=== PATIENT | female | born 1945 | race Caucasian/White ===

== ENCOUNTER 2018-04-08 10:43 | Emergency (ER) | payer OTHER ==
[2018-04-08 10:50] VITALS: TEMP 98.7; BMI 30.9
[2018-04-08] MEDS ORDERED: BACITRACIN 0.9 GM PACKET ONE (11:16)
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
[2018-04-08 14:04] VITALS: BP 140/82; PULSE 78
== END 2018-04-08 13:55 | disposition home or self-care (01) ==
LOC: JER 10:43
DX: S00.31XA Abrasion of nose, initial encounter (principal); Y04.2XXA Assault by strike against or bumped into by another person, initial encounter; Y93.89 Activity, other specified; Y92.128 Other place in nursing home as the place of occurrence of the external cause; Y99.8 Other external cause status; Y07.9 Unspecified perpetrator of maltreatment and neglect; I10 Essential (primary) hypertension; G20 Parkinson's disease; F02.80 Dementia in other diseases classified elsewhere, unspecified severity, without behavioral disturbance, psychotic disturbance, mood disturbance, and anxiety; F20.0 Paranoid schizophrenia; K21.9 Gastro-esophageal reflux disease without esophagitis
CPT/HCPCS: 99282-25

== ENCOUNTER 2018-07-07 12:15 | Emergency (ER) | payer MEDICARE, OTHER ==
[2018-07-07 12:23] VITALS: PULSE 77; TEMP 98.4; BMI 26.6
--- NOTE | 2018-07-07 13:21 | PDOC ---
History of Present Illness - General Chief Complaint: Pain, Acute Stated Complaint: ABD PAIN Time Seen by Provider: 07/07/18 13:19 History Source: Patient Exam Limitations: Other - History of Present Illness Initial Comments: Pt is a 73 yo F, with PMH of Parkinson's ds, GERD, paranoid schizophrenia, and DM, who is presenting with complaints of epigastric pain since this morning. Pt states the pain started after drinking her morning coffee and eating chocolate. The pain persisted for ~15 minutes, resolved, and then returned about an hour later. She does not have any current complaints at this time. Pt takes ranitidine Qday at [facility], but pt does not know why she takes this medication or what produces her epigastric pain. Pt states this pain comes and goes over the past 2 weeks, but she states she has not been evaluated by a physician for this problem recently. Pt denies any recent fevers/chills, headache, vision changes, syncope, chest pain, palpitations, SOB, nausea/vomiting, urinary symptoms, diarrhea/constipation, or leg swelling. Social: Pt denies any cigarette, alcohol, or drug use. Pt denies any recent travel or sick contacts. Surgical: no relevant history. Family: no relevant history. 07/07/18 14:33 Past History - Travel Traveled outside of the country in the last 30 days: No Close contact w/someone who was outside of country & ill: No - Past Medical History Allergies/Adverse Reactions: Allergies Allergy/AdvReac Type Severity Reaction Status Date / Time No Known Allergies Allergy Verified 07/07/18 12:21 Home Medications: Ambulatory Orders Acetaminophen [Tylenol] 650 mg PO QID 07/07/18 Ca/D3/Mag Ox/Zinc/Certified Lactation Educator/Allan/Bor [Calcium 600+D3 Plus Caplet] 1 each PO BID Carbidopa/Levodopa 25/100 [Sinemet 25/100 -] 1 each PO DAILY 07/07/18 Fenofibrate Nanocrystallized [Triglide] 160 mg PO DAILY 07/07/18 Insulin Lispro [Humalog Vikas Kwikpen] 100 unit SQ BID 07/07/18 Multivitamins [Tab-A-Vit -] 1 tab PO DAILY 07/07/18 Polyvinyl Alcohol [Artificial Tears] 15 ml OP BID 07/07/18 Quetiapine Fumarate [Seroquel -] 400 mg PO BID 07/07/18 Ranitidine HCl [Zantac] 150 mg PO BID 07/07/18 Risperidone 1 mg PO BID 07/07/18 Sennosides/Docusate Sodium [Senna-Docusate Sodium Tablet] 1 each PO BID Valproic Acid 250 mg PO BID 07/07/18 clonazePAM [Klonopin -] 0.5 mg PO DAILY 07/07/18 COPD: No Dementia: Yes GI Disorders: Yes (gerd) HTN: Yes Psychiatric Problems: Yes (paranoid schiophrenia, anxiety) - Suicide/Smoking/Psychosocial Hx Smoking History: Former smoker Have you smoked in the past 12 months: No Information on smoking cessation initiated: No Hx Alcohol Use: No Drug/Substance Use Hx: No Substance Use Type: None Review of Systems - Review of Systems Able to Perform ROS?: Yes Is the patient limited Lithuanian proficient: No Constitutional: Yes: Weight Stable. No: Chills, Diaphoresis, Fever, Loss of Appetite, Weakness HEENTM: No: Recent change in vision, Nose Congestion, Throat Pain Respiratory: No: Cough, Shortness of Breath Cardiac (ROS): No: Chest Pain, Edema, Irregular Heart Rate, Lightheadedness, Palpitations, Syncope, Chest Tightness ABD/GI: Yes: See HPI, Indigestion, Abdominal cramping. No: Abdominal Distended , Blood Streaked Bowels, Constipated, Diarrhea, Nausea, Poor Appetite, Poor Fluid Intake, Vomiting : No: Burning, Dysuria, Frequency, Pain, Urgency Musculoskeletal: No: Back Pain, Joint Pain Integumentary: No: Rash Neurological: No: Headache, Dizziness Psychiatric: No: Sleep Pattern Change, Change in Appetite Endocrine: No: Increased Urine, Change in Weight Hematologic/Lymphatic: No: Anemia, Blood Clots, Easy Bleeding, Easy Bruising All Other Systems: Reviewed and Negative *Physical Exam - Vital Signs Last Vital Signs Temp Pulse Resp BP Pulse Ox 98.4 F 77 18 136/36 L 97 07/07/18 12:21 07/07/18 12:21 07/07/18 12:21 07/07/18 12:21 07/07/18 12:21 - Physical Exam Comments: Repeat BP at bedside 123/59, pt afebrile. Pt in NAD, normal body habitus. PE showed pt alert and oriented, but very poor insight into why she is present in the ER and is poor historian. podiatric medicine professor generally intact, muscular strength and sensation intact. Eyes PERRLA, EOMI. Oropharynx without erythema or exudates, no LAD b/l. No nasal congestion, hearing intact. Clear heart sounds, S1/S2, no JVD, b/l pedal edema, or heart murmur. Clear lung sounds, no respiratory distress, wheezes, crackles, or accessory muscle use. No abdominal or CVA tenderness to palpation, no rebound, no guarding, no hernias or pulsatile masses. Abdomen soft, non-distended, and with normoactive bowel sounds. Skin without jaundice or rash. PE benign. 07/07/18 14:37 Moderate Sedation - Procedure Monitoring Vital Signs: Procedure Monitoring Vital Signs Temperature 98.4 F 07/07/18 12:21 Pulse Rate 77 07/07/18 12:21 Respiratory Rate 18 07/07/18 12:21 Blood Pressure 136/36 L 07/07/18 12:21 O2 Sat by Pulse Oximetry (%) 97 07/07/18 12:21 Heart Score/ECG Review - History History: Slightly suspicious - Electrocardiogram EKG: Non specific repolarization disturbance - Age Age: >/= 65 - Risk Factors Risk Factors Heart Score: Yes Hx Diabetes Based on the list above the patient has:: 1-2 risk factors ED Treatment Course - LABORATORY CBC & Chemistry Diagram: 07/07/18 13:48 07/07/18 13:48 Medical Decision Making - Medical Decision Making Pt was seen at bedside, also will be seen by attending Dr. Garber. Pt presenting with complaints of epigastric pain since this morning. Pt states the pain started after drinking her morning coffee and eating chocolate. The pain persisted for ~15 minutes, resolved, and then returned about an hour later. She does not have any current complaints at this time. Pt takes ranitidine Qday at [facility], but pt does not know why she takes this medication or what produces her epigastric pain. Pt states this pain comes and goes over the past 2 weeks, but she states she has not been evaluated by a physician for this problem recently. Pt denies any recent fevers/chills, headache, vision changes, syncope , chest pain, palpitations, SOB, nausea/vomiting, urinary symptoms, diarrhea/ constipation, or leg swelling. Repeat BP at bedside 123/59, pt afebrile. Pt in NAD, normal body habitus. PE showed pt alert and oriented, but very poor insight into why she is present in the ER and is poor historian. podiatric medicine professor generally intact, muscular strength and sensation intact. Eyes PERRLA, EOMI. Oropharynx without erythema or exudates, no LAD b/l. No nasal congestion, hearing intact. Clear heart sounds, S1/S2, no JVD, b/l pedal edema, or heart murmur. Clear lung sounds, no respiratory distress, wheezes, crackles, or accessory muscle use. No abdominal or CVA tenderness to palpation, no rebound, no guarding, no hernias or pulsatile masses. Abdomen soft, non-distended, and with normoactive bowel sounds. Skin without jaundice or rash. PE benign. Considering GERD exacerbation vs gastric/duodenal ulcer Ordered work-up including CBC, CMP, troponin, ECG, UA, chest x-ray. Providing 20 mg IV pepcid, 30 mg PO maalox, viscous lidocaine for likely reflux. Will continue to reassess pt and monitor for symptomatic improvement. ECG: NSR, intervals WNL. TWI in III, no prior for comparison. No significant ST segment changes. 07/07/18 13:48 Pt attempting to leave against medical advice. Pt is alert and oriented, however has underlying dementia and psych history, and has no insight into her disease process. She does not understand why she is receiving treatment or work- up. Will continue to evaluate pt, and she is willing to take medication. 07/07/18 14:09 07/07/18 14:35 CBC, CMP, UA negative. AST mildly elevated 107, ALT WNL (no prior for comparison -- can follow outpatient) First troponin <.02. Second troponin to be drawn at 16:45. Nursing staff aware. 07/07/18 14:41 Second troponin pending in lab. [id number] RAD/CHEST PA & LAT Chest: Epigastric pain There are no prior studies for comparison. There is a weak inspiration with prominent mediastinum, slight scoliosis with degenerative changes and some atelectasis and pleural reaction at the left base. Correlation recommended. Pt vitals stable -- no cough, increased WBC/fever -- unlikely pneumonia 07/07/18 17:09 Second troponin negative. Pt can be discharged to home with follow-up. Pt advised to follow-up with PCP in 1-2 days. Strict return precautions provided with pt understanding. 07/07/18 17:56 *DC/Admit/Observation/Transfer Diagnosis at time of Disposition: Epigastric pain - Discharge Dispostion Disposition: [facility] F[facility] Condition at time of disposition: Improved Decision to Admit order: No - Referrals Referrals: Arnulfo Darling MD [Primary Care Provider] - - Patient Instructions Printed Discharge Instructions: DI for Gastroesophageal Reflux Disease (GERD) Additional Instructions: You were seen in the ER today for pain in your upper abdomen. The results of your labs and imaging today were normal and you improved after reflux medication. Please follow-up with your primary care doctor within 1-2 days to discuss your visit and make sure your symptoms have improved. Please return to the ER if you have any worsening pain, development of fevers or chills, loss of consciousness, inability to tolerate food or fluids, or any other concerns. - Post Discharge Activity
[2018-07-07] MEDS ORDERED: MAG HYDROX/AL HYDROX/SIMETH 30 ML UNIT-DOSE CUP PO ONE (14:00)
[2018-07-07] MEDS ORDERED: FAMOTIDINE 20 MG/50 ML IVPB 20 MG/50 ML MG IVPB ONE ×2 (14:00→14:04)
[2018-07-07] MEDS ORDERED: LIDOCAINE VISCOUS 2% ORAL/TOP 20 ML UNIT-DOSE CUP MM ONE (14:00)
[2018-07-07] MEDS ORDERED: MAG HYDROX/AL HYDROX/SIMETH 30 ML UNIT-DOSE CUP ONE (14:04)
[2018-07-07] MEDS ORDERED: LIDOCAINE VISCOUS 2% ORAL/TOP 20 ML UNIT-DOSE CUP ONE (14:04)
--- NOTE | 2018-07-07 14:08 | PDOC ---
Attending Attestation - Resident Resident Name: Sheryl Noble - ED Attending Attestation I have performed the following: I have examined & evaluated the patient, The case was reviewed & discussed with the resident, I agree w/resident's findings & plan - HPI HPI: 07/07/18 14:38 The patient is a 73 year old female, with a significant past medical history of Parkinson's, GERD, paranoid schizophrenia, and diabetes, poor historian, who presents to the emergency department with epigastric pain since drinking coffee this morning. She states the pain lasts for about 15 minutes and comes and goes. The patient denies chest pain, shortness of breath, headache and dizziness. The patient denies fever, chills, nausea, vomit, diarrhea and constipation. The patient denies dysuria, frequency, urgency and hematuria. Allergies: NKA Social hx: Pt is a resident at [facility] PCP: Dr. Howard - Physicial Exam PE: 07/07/18 14:38 NAD, well appearing, nl conjunctiva, anicteric; neck supple. lungs clear, RRR, abdomen soft nontender. HARRIS x4, no focal neuro deficits. No peripheral edema. normal color for ethnicity, WWP. - Medical Decision Making 07/07/18 14:38 See HPI for details Vital signs reviewed, wnl. Prior notes reviewed, including admissions, discharges and consultations. laboratory results and imaging reviewed, basic labs and lytes wnl, UA neg for infection/blood. Cardiac panel_negative x2 EKG normal sinus rhythm, no interval abnormalities, narrow QRS, ST and T wave segments and morphology normal. Nonspecific T wave abnormalities III only, no contiguous lead changes. ED course: comfortable, given GI cocktail 2nd trop neg, DC home, doubt ACS, more GERd/reflux sx and pt has remained comfortable, abdomen nontender, no cp or sob Dispo: Pt informed of my clinical impression, treatment recommendations and disposition plan. All questions answered to patient's satisfaction and expressed understanding and comfort with this. Reasons for returning to the ED sooner discussed with the patient otherwise, follow up with primary care physician. At the time of discharge, the patient is alert, clinically improved, tolerating po and verbalizes understanding of instructions. Patient does not suffer from an acute life-threatening medical condition at this time she is safe for outpatient follow-up. 07/07/18 14:39 07/07/18 14:40 07/08/18 07:46 07/08/18 07:48 Heart Score/ECG Review - ECG Impressions Normal ECG: No Comment:: 07/07/18 14:39 EKG normal sinus rhythm, no interval abnormalities, narrow QRS, ST and T wave segments and morphology normal. Nonspecific T wave abnormalities III only, no contiguous lead changes.
[2018-07-07 14:19] LABS: BASO % 0.5 % (0-2.0); EOS % 2.1 % (0-4.5); HEMATOCRIT 32.4 % (32.4-45.2); LYMPH % 25.9 % (8-40); MCH 30.6 pg (25.7-33.7); MEAN CELL VOLUME 90.1 fl (80-96); MEAN PLT VOLUME 7.7 fl (7.5-11.1); MONO % 10.7 % (3.8-10.2); NEUT % 60.8 % (42.8-82.8); PLATELET COUNT 312 K/MM3 (134-434); RBC 3.59 M/mm3 (3.60-5.2); WHITE BLOOD COUNT 6.1 K/mm3 (4.0-10.0)
[2018-07-07 14:20] LABS: URINE APPEARANCE CLEAR; URINE BILIRUBIN NEGATIVE (<2.0 mg/dL); URINE COLOR STRAW; URINE GLUCOSE (UA) NEGATIVE (NEGATIVE); URINE KETONE NEGATIVE (NEGATIVE); URINE LEUK ESTERASE NEGATIVE (NEGATIVE); URINE NITRITE NEGATIVE (NEGATIVE); URINE PROTEIN NEGATIVE (NEGATIVE); URINE UROBILINOGEN NEGATIVE mg/dL (0.2-1.0)
[2018-07-07 14:34] LABS: ALBUMIN 3.7 g/dl (3.4-5.0); ALK PHOS 96 U/L (45-117); ANION GAP 5 MMOL/L (8-16); BILIRUBIN,TOTAL 0.1 mg/dL (0.2-1); BLOOD UREA NITROGEN 22 mg/dL (7-18); CALCIUM 8.7 mg/dL (8.5-10.1); CHLORIDE 103 mmol/L (98-107); CO2 30 mmol/L (21-32); CREATININE 0.7 mg/dL (0.55-1.3); GLUCOSE,RANDOM 91 mg/dL (74-106); POTASSIUM 3.8 mmol/L (3.5-5.1); SGOT/AST 107 U/L (15-37); SGPT/ALT 49 U/L (13-61); SODIUM 138 mmol/L (136-145)
[2018-07-07 14:36] VITALS: BP 123/59
--- NOTE | 2018-07-08 02:33 | EKG ---
Test Reason : Blood Pressure : / mmHG Vent. Rate : 076 BPM Atrial Rate : 076 BPM P-R Int : 154 ms QRS Dur : 096 ms QT Int : 402 ms P-R-T Axes : 051 025 030 degrees QTc Int : 452 ms NORMAL SINUS RHYTHM NORMAL ECG NO PREVIOUS ECGS AVAILABLE Confirmed by JOHN GONZALEZ MD ([id number]) on 07/08/2018 2:32:38 AM Referred By: Confirmed By:JOHN GONZAELZ MD
== END 2018-07-07 22:48 ==
LOC: JER 12:15
PROC: 3E033GC Introduction of Other Therapeutic Substance into Peripheral Vein, Percutaneous Approach (ICD-10-PCS; principal; 2018-07-07)
DX: R10.13 Epigastric pain (principal); E11.9 Type 2 diabetes mellitus without complications; K21.9 Gastro-esophageal reflux disease without esophagitis; G20 Parkinson's disease; F20.0 Paranoid schizophrenia
CPT/HCPCS: 36415; 71046-TC-FY; 80053; 81003; 84484; 85025; 87086; 93005; 93010; 96365; 99283-25

== ENCOUNTER 2024-03-21 16:37 | Emergency (ER) | payer OTHER ==
[2024-03-21 17:47] VITALS: BP 131/82; PULSE 97; RESP 18; TEMP 98.8; BMI 25.8
[2024-03-21 18:20] LABS: BASO % 0.8 % (0-2.0); EOS % 2.8 % (0-4.5); HEMATOCRIT 34.1 % (32.4-45.2); HEMOGLOBIN 11.2 GM/dL (10.7-15.3); MCHC 32.8 g/dl (32.0-36.0); MEAN CELL VOLUME 88.4 fl (80-96); MEAN PLT VOLUME 7.4 fl (7.5-11.1); NEUT % 68.4 % (42.8-82.8); PLATELET COUNT 443 10^3/uL (134-434); RBC 3.86 M/mm3 (3.60-5.2); RDW 15.5 % (11.6-15.6); WHITE BLOOD COUNT 5.8 K/mm3 (4.0-10.0)
[2024-03-21 18:50] LABS: POTASSIUM 3.5 mmol/L (3.5-5.1)
[2024-03-21 18:52] LABS: CALCIUM 9.5 mg/dL (8.5-10.1)
[2024-03-21 18:53] LABS: ALBUMIN 3.4 g/dl (3.4-5.0); BLOOD UREA NITROGEN 11.8 mg/dL (7-18)
[2024-03-21 18:56] LABS: CREATININE 0.7 mg/dL (0.55-1.3)
[2024-03-21 18:57] LABS: BILIRUBIN,TOTAL 0.3 mg/dL (0.2-1); TOT PROT 7.1 g/dl (6.4-8.2)
[2024-03-21] MEDS ORDERED: clonazePAM 0.5 MG TABLET ONE (20:17)
[2024-03-21] MEDS: clonazePAM 0.5 MG TABLET PO ONE (20:39)
[2024-03-22 01:26] LABS: URINE APPEARANCE CLEAR; URINE BILIRUBIN NEGATIVE (NEGATIVE); URINE COLOR YELLOW; URINE GLUCOSE (UA) NEGATIVE (NEGATIVE); URINE KETONE TRACE (NEGATIVE); URINE LEUK ESTERASE NEGATIVE (NEGATIVE); URINE NITRITE NEGATIVE (NEGATIVE); URINE PROTEIN TRACE (NEGATIVE)
[2024-03-22] MEDS: SODIUM CHLORIDE 1,000 ML IV STA (02:08)
== END 2024-03-22 03:47 ==
LOC: JER 16:37
PROC: 3E033GC Introduction of Other Therapeutic Substance into Peripheral Vein, Percutaneous Approach (ICD-10-PCS; principal; 2024-03-21)
PROC: 3E0337Z Introduction of Electrolytic and Water Balance Substance into Peripheral Vein, Percutaneous Approach (ICD-10-PCS; 2024-03-21)
DX: R41.82 Altered mental status, unspecified (principal); Z20.822 Contact with and (suspected) exposure to COVID-19
CPT/HCPCS: 0241U-QW; 36415; 70450-TC; 71045-TC-FY; 80053; 81003; 85025; 87086; 93005; 93010; 99285-25

== ENCOUNTER 2024-04-22 19:19 | Inpatient (IN) | payer OTHER ==
[2024-04-22 22:49] LABS: BASO % 0.2 % (0-2.0); HEMATOCRIT 35.3 % (32.4-45.2); LYMPH % 9.2 % (8-40); MCH 28.3 pg (25.7-33.7); MCHC 31.3 g/dl (32.0-36.0); MEAN CELL VOLUME 90.4 fl (80-96); MEAN PLT VOLUME 8.4 fl (7.5-11.1); MONO % 7.9 % (3.8-10.2); NEUT % 82.7 % (42.8-82.8); PLATELET COUNT 408 10^3/uL (134-434); RDW 15.6 % (11.6-15.6); WHITE BLOOD COUNT 10.5 K/mm3 (4.0-10.0)
[2024-04-22 22:51] LABS: VENOUS BASE EXCESS -3.6 mmol/L (-2-2); VENOUS O2 SATURATION 51.6 % (70-80); VENOUS PCO2 43.7 mmHg (38-52); VENOUS PH 7.326 (7.310-7.410)
[2024-04-22 23:02] LABS: INR 1.23 (0.83-1.09); PROTHROMBIN TIME (PATIENT) 14.1 SEC (9.7-13.0)
[2024-04-22 23:05] LABS: ACTIVATED PTT 27.8 SECONDS (25.2-36.5)
[2024-04-22 23:11] LABS: ALBUMIN 3.4 g/dl (3.4-5.0); BLOOD UREA NITROGEN 26.4 mg/dL (7-18); CALCIUM 8.8 mg/dL (8.5-10.1); POTASSIUM 4.1 mmol/L (3.5-5.1)
[2024-04-22 23:27] LABS: BILIRUBIN,TOTAL 0.5 mg/dL (0.2-1); CREATININE 1.3 mg/dL (0.55-1.3); LACTIC ACID 3.6 mmol/L (0.4-2.0); TOT PROT 7.9 g/dl (6.4-8.2)
[2024-04-23] MEDS: SODIUM CHLORIDE 0.9% 500 ML INFUS.BAG IV ONE (00:07)
[2024-04-23] MEDS: SODIUM PHOSPHATE/NA BIPHOS 133 ML ENEMA PR ONE (04:01)
[2024-04-23] MEDS: ENOXAPARIN NA (PORCINE) 80 MG/0.8 ML DISP.SYRIN SQ ONE (04:27)
[2024-04-23] MEDS: SODIUM CHLORIDE 1,000 ML IV SCH ×2 (04:32→16:22)
[2024-04-23] MEDS ORDERED: ENOXAPARIN NA (PORCINE) 80 MG/0.8 ML DISP.SYRIN SQ ONE ×2 (04:36→16:10)
[2024-04-23] MEDS ORDERED: ENOXAPARIN NA (PORCINE) 80 MG/0.8 ML DISP.SYRIN SQ SCH (04:45)
[2024-04-23 04:46] LABS: EPI CELLS >36 /uL (0-25.1); HYALINE CASTS 2 /uL (0-3.1); PH,URINE 5.5 (5.0-8.0); URINE APPEARANCE CLOUDY; URINE BACTERIA >9,000 /uL (0-1359); URINE BILIRUBIN 1+ (NEGATIVE); URINE COLOR DK YELLOW; URINE GLUCOSE (UA) NEGATIVE (NEGATIVE); URINE KETONE TRACE (NEGATIVE); URINE LEUK ESTERASE TRACE (NEGATIVE); URINE NITRITE NEGATIVE (NEGATIVE); URINE PROTEIN 1+ (NEGATIVE); URINE WBC 84 /uL (0-25.8)
[2024-04-23] MEDS: MINERAL OIL ENEMA 133 ML ENEMA RC ONE ×4 (06:18→12:09)
[2024-04-23] MEDS ORDERED: ONDANSETRON 4 MG/2 ML VIAL ONE (06:27)
[2024-04-23] MEDS: ACETAMINOPHEN 1000 MG/100 ML BAG IVPB ONE (06:31)
[2024-04-23] MEDS: INSULIN ASPART SLIDING SCALE (NOVOLOG) 1 VIAL SQ SCH (06:32)
[2024-04-23] MEDS: ONDANSETRON 4 MG/2 ML VIAL IVPUSH SCH (06:33)
[2024-04-23] MEDS ORDERED: risperiDONE 0.5 MG TABLET ONE ×2 (09:15→22:36)
[2024-04-23] MEDS ORDERED: POLYETHYLENE GLYCOL (HEALTHYLAX) 3350 17 GM PACKET ONE (09:15)
[2024-04-23] MEDS ORDERED: CARBIDOPA/LEVODOPA 25/100 TABLET (FP) ONE ×2 (09:15→22:37)
[2024-04-23] MEDS: CARBIDOPA/LEVODOPA 25/100 TABLET (FP) PO SCH (09:35)
[2024-04-23] MEDS: RISPERIDONE PO SCH (09:35)
[2024-04-23] MEDS: POLYETHYLENE GLYCOL (HEALTHYLAX) 3350 17 GM PACKET PO SCH (09:35)
[2024-04-23] MEDS ORDERED: risperiDONE 1 MG TABLET PO SCH (10:00)
[2024-04-23] MEDS ORDERED: risperiDONE 2 MG TABLET PO SCH (10:00)
[2024-04-23] MEDS ORDERED: QUEtiapine FUMARATE 400 MG TABLET PO SCH (10:00)
[2024-04-23] MEDS: QUEtiapine FUMARATE 200 MG TABLET PO SCH (10:25)
[2024-04-23] MEDS: PEG 3350/NA SULF BICARB CL/KCL 4000 ML SOLN.RECON PO ONE (12:53)
[2024-04-23] MEDS ORDERED: ACETAMINOPHEN INJECTION 100 ML ONE (16:10)
[2024-04-23] MEDS: ENOXAPARIN NA (PORCINE) 80 MG/0.8 ML DISP.SYRIN SQ SCH (16:21)
[2024-04-23] MEDS: MELATONIN 5 MG TABLETS PO SCH (22:20)
[2024-04-23] MEDS ORDERED: MELATONIN 5 MG TABLETS ONE (22:35)
[2024-04-23] MEDS ORDERED: QUEtiapine FUMARATE 100 MG TABLET (FP) ONE (22:37)
[2024-04-23] MEDS: FENOFIBRIC ACID 135 MG CAP PO SCH (23:38)
[2024-04-24] MEDS ORDERED: ENOXAPARIN NA (PORCINE) 80 MG/0.8 ML DISP.SYRIN SQ ONE ×2 (04:04→17:27)
[2024-04-24] MEDS ORDERED: ONDANSETRON 4 MG/2 ML VIAL ONE ×2 (04:05→10:09)
[2024-04-24] MEDS ORDERED: PHENYTOIN NA EXTENDED 100 MG CAPSULE (FP) ONE (06:25)
[2024-04-24] MEDS ORDERED: PHENobarbital 30 MG TABLET ONE (06:25)
[2024-04-24] MEDS ORDERED: LEVOTHYROXINE NA 100 MCG TABLET (FP) ONE (06:25)
[2024-04-24 09:45] LABS: BASO % 0.6 % (0-2.0); EOS % 0.7 % (0-4.5); HEMATOCRIT 34.6 % (32.4-45.2); HEMOGLOBIN 10.6 GM/dL (10.7-15.3); LYMPH % 5.9 % (8-40); MCH 28.8 pg (25.7-33.7); MCHC 30.7 g/dl (32.0-36.0); MEAN CELL VOLUME 94.1 fl (80-96); MEAN PLT VOLUME 8.9 fl (7.5-11.1); MONO % 6.4 % (3.8-10.2); NEUT % 86.4 % (42.8-82.8); PLATELET COUNT 287 10^3/uL (134-434); RBC 3.68 M/mm3 (3.60-5.2); RDW 15.7 % (11.6-15.6); WHITE BLOOD COUNT 8.3 K/mm3 (4.0-10.0)
[2024-04-24 10:03] LABS: POTASSIUM 3.8 mmol/L (3.5-5.1)
[2024-04-24] MEDS: PEG 3350/NA SULF BICARB CL/KCL 4000 ML SOLN.RECON PO ONE (10:07)
[2024-04-24 10:13] LABS: BLOOD UREA NITROGEN 22.3 mg/dL (7-18); CALCIUM 8.3 mg/dL (8.5-10.1); MAGNESIUM 1.9 mg/dL (1.8-2.4)
[2024-04-24 10:16] LABS: CREATININE 0.9 mg/dL (0.55-1.3); PHOSPHOROUS 1.8 mg/dL (2.5-4.9)
[2024-04-24 10:18] LABS: BILIRUBIN,TOTAL 0.8 mg/dL (0.2-1)
[2024-04-25 08:20] LABS: BASO % 0.1 % (0-2.0); EOS % 0.1 % (0-4.5); HEMATOCRIT 28.7 % (32.4-45.2); HEMOGLOBIN 9.3 GM/dL (10.7-15.3); LYMPH % 9.6 % (8-40); MCH 28.8 pg (25.7-33.7); MCHC 32.3 g/dl (32.0-36.0); MEAN CELL VOLUME 89.2 fl (80-96); MEAN PLT VOLUME 8.5 fl (7.5-11.1); MONO % 10.7 % (3.8-10.2); NEUT % 79.5 % (42.8-82.8); PLATELET COUNT 314 10^3/uL (134-434); RBC 3.22 M/mm3 (3.60-5.2); RDW 15.6 % (11.6-15.6); WHITE BLOOD COUNT 7.2 K/mm3 (4.0-10.0)
[2024-04-25 08:43] LABS: POTASSIUM 3.1 mmol/L (3.5-5.1)
[2024-04-25 08:49] LABS: BLOOD UREA NITROGEN 21.1 mg/dL (7-18); CALCIUM 8.2 mg/dL (8.5-10.1)
[2024-04-25 08:53] LABS: CREATININE 0.8 mg/dL (0.55-1.3)
[2024-04-25] MEDS: SODIUM CHLORIDE 1,000 ML IV STA (13:12)
[2024-04-25] MEDS: MULTIVITAMINS (DAILY MVI) TABLET (FP) PO SCH (14:43)
[2024-04-25] MEDS: AMINO ACIDS/PROTEIN HYDROLYS 30 ML LIQUID.PKT PO SCH (17:31)
[2024-04-25] MEDS: ASCORBIC ACID 500 MG TABLET (FP) PO SCH (22:41)
[2024-04-25] MEDS: POLYETHYLENE GLYCOL (HEALTHYLAX) 3350 17 GM PACKET PO SCH (22:41)
[2024-04-26] MEDS: ACETAMINOPHEN 1000 MG/100 ML BAG IVPB PRN (10:06)
[2024-04-26] MEDS: SODIUM CHLORIDE 1,000 ML IV STA (10:08)
[2024-04-26 11:36] LABS: HEMATOCRIT 29.8 % (32.4-45.2); HEMOGLOBIN 9.8 GM/dL (10.7-15.3); MCH 29.1 pg (25.7-33.7); MCHC 32.7 g/dl (32.0-36.0); MEAN CELL VOLUME 88.9 fl (80-96); MEAN PLT VOLUME 8.4 fl (7.5-11.1); PLATELET COUNT 316 10^3/uL (134-434); RBC 3.36 M/mm3 (3.60-5.2); RDW 15.8 % (11.6-15.6); WHITE BLOOD COUNT 7.4 K/mm3 (4.0-10.0)
[2024-04-26 11:55] LABS: POTASSIUM 3.3 mmol/L (3.5-5.1)
[2024-04-26 12:00] LABS: BLOOD UREA NITROGEN 19.4 mg/dL (7-18); CALCIUM 8.4 mg/dL (8.5-10.1)
[2024-04-26 12:04] LABS: CREATININE 0.8 mg/dL (0.55-1.3)
[2024-04-26] MEDS: POTASSIUM CHLORIDE ORAL LIQUID 20 MEQ/15 ML PO ONE (17:34)
[2024-04-27 08:38] LABS: POTASSIUM 3.4 mmol/L (3.5-5.1)
[2024-04-27 08:45] LABS: ALBUMIN 2.7 g/dl (3.4-5.0); BLOOD UREA NITROGEN 16.9 mg/dL (7-18); CALCIUM 8.4 mg/dL (8.5-10.1)
[2024-04-27 08:46] LABS: HEMATOCRIT 28.7 % (32.4-45.2); HEMOGLOBIN 9.3 GM/dL (10.7-15.3); MCHC 32.4 g/dl (32.0-36.0); MEAN CELL VOLUME 89.5 fl (80-96); MEAN PLT VOLUME 8.6 fl (7.5-11.1); PLATELET COUNT 299 10^3/uL (134-434); RBC 3.21 M/mm3 (3.60-5.2); RDW 15.6 % (11.6-15.6); WHITE BLOOD COUNT 10.6 K/mm3 (4.0-10.0)
[2024-04-27 08:48] LABS: CREATININE 0.6 mg/dL (0.55-1.3)
[2024-04-27 08:49] LABS: BILIRUBIN,TOTAL 0.6 mg/dL (0.2-1); TOT PROT 6.2 g/dl (6.4-8.2)
[2024-04-27] MEDS: clonazePAM 0.5 MG TABLET PO PRN (10:41)
[2024-04-27] MEDS: APIXABAN 5 MG TABLET PO SCH (22:24)
[2024-04-27] MEDS: QUEtiapine FUMARATE 200 MG TABLET PO SCH (22:35)
[2024-04-28] MEDS ORDERED: INSULIN ASPART SLIDING SCALE (NOVOLOG) 1 VIAL SQ ONE (06:25)
[2024-04-28 07:38] LABS: HEMOGLOBIN 9.6 GM/dL (10.7-15.3); MCH 29.4 pg (25.7-33.7); MCHC 33.1 g/dl (32.0-36.0); MEAN CELL VOLUME 88.9 fl (80-96); MEAN PLT VOLUME 8.3 fl (7.5-11.1); PLATELET COUNT 330 10^3/uL (134-434); RBC 3.26 M/mm3 (3.60-5.2); RDW 15.8 % (11.6-15.6)
[2024-04-28 07:51] LABS: CHLORIDE 109 mmol/L (98-107); POTASSIUM 3.2 mmol/L (3.5-5.1); SODIUM 142 mmol/L (136-145)
[2024-04-28 08:00] LABS: ALBUMIN 2.7 g/dl (3.4-5.0); ANION GAP 6 mmol/L (4-13); CALCIUM 8.5 mg/dL (8.5-10.1); CO2 27 mmol/L (21-32); GLUCOSE,RANDOM 139 mg/dL (74-106); MAGNESIUM 1.6 mg/dL (1.8-2.4)
[2024-04-28 08:03] LABS: CREATININE 0.6 mg/dL (0.55-1.3); SGOT/AST 25 U/L (15-37); SGPT/ALT 18 U/L (13-61)
[2024-04-28 08:04] LABS: BILIRUBIN,TOTAL 0.6 mg/dL (0.2-1); TOT PROT 6.4 g/dl (6.4-8.2)
[2024-04-28 08:06] LABS: ALK PHOS 50 U/L (45-117)
[2024-04-28 08:24] LABS: PHOSPHOROUS 1.1 mg/dL (2.5-4.9)
[2024-04-28] MEDS: MAGNESIUM 2GM/50ML STERILE WATER IVPB IVPB ONE (09:41)
[2024-04-28] MEDS: POTASSIUM PHOSPHATE 30 MM in DEXTROSE 5%-WATER - 500 ML IVPB ONE (11:41)
[2024-04-28 13:52] VITALS: BMI 29.9
[2024-04-28 20:30] LABS: CALCIUM 7.5 mg/dL (8.5-10.1)
[2024-04-28 20:31] LABS: BLOOD UREA NITROGEN 12.9 mg/dL (7-18); MAGNESIUM 1.7 mg/dL (1.8-2.4)
[2024-04-28 20:34] LABS: ALBUMIN 1.9 g/dl (3.4-5.0); CREATININE 0.7 mg/dL (0.55-1.3); PHOSPHOROUS 2.1 mg/dL (2.5-4.9)
[2024-04-28 20:35] LABS: BILIRUBIN,TOTAL 0.4 mg/dL (0.2-1); TOT PROT 4.7 g/dl (6.4-8.2)
[2024-04-29 07:17] LABS: BASO % 0.1 % (0-2.0); EOS % 0.9 % (0-4.5); HEMATOCRIT 28.6 % (32.4-45.2); HEMOGLOBIN 9.2 GM/dL (10.7-15.3); LYMPH % 7.2 % (8-40); MCH 28.9 pg (25.7-33.7); MCHC 32.2 g/dl (32.0-36.0); MEAN CELL VOLUME 89.6 fl (80-96); MEAN PLT VOLUME 8.3 fl (7.5-11.1); MONO % 10.9 % (3.8-10.2); NEUT % 80.9 % (42.8-82.8); PLATELET COUNT 365 10^3/uL (134-434); RBC 3.19 M/mm3 (3.60-5.2); RDW 16.5 % (11.6-15.6); WHITE BLOOD COUNT 8.3 K/mm3 (4.0-10.0)
[2024-04-29 07:32] LABS: POTASSIUM 3.6 mmol/L (3.5-5.1)
[2024-04-29 07:39] LABS: CALCIUM 7.9 mg/dL (8.5-10.1); MAGNESIUM 1.6 mg/dL (1.8-2.4)
[2024-04-29 07:40] LABS: ALBUMIN 2.6 g/dl (3.4-5.0)
[2024-04-29 07:42] LABS: CREATININE 0.5 mg/dL (0.55-1.3)
[2024-04-29 07:44] LABS: BILIRUBIN,TOTAL 0.5 mg/dL (0.2-1); PHOSPHOROUS 2.2 mg/dL (2.5-4.9); TOT PROT 6.2 g/dl (6.4-8.2)
[2024-04-29] MEDS: THIAMINE 100 MG TABLET PO SCH (09:58)
[2024-04-29] MEDS: NAPH,MB-DB/K PH,MBDB POWDER PACKET PO ONE (13:21)
[2024-04-29] MEDS: MAGNESIUM SULFATE IN WATER 2 GM/50 ML IVPB IVPB ONE (13:21)
[2024-04-29] MEDS: MAGNESIUM OXIDE 400 MG TABLET (FP) PO ONE (13:53)
[2024-04-29 15:53] VITALS: RESP 20
[2024-04-29 16:05] LABS: MAGNESIUM 1.7 mg/dL (1.8-2.4)
[2024-04-29 16:08] LABS: PHOSPHOROUS 2.2 mg/dL (2.5-4.9)
[2024-04-29 17:26] VITALS: BP 123/81; PULSE 88; TEMP 98.8
[2024-04-29] MEDS ORDERED: MAGNESIUM OXIDE 400 MG TABLET (FP) PO SCH (22:00)
[2024-05-04] MEDS ORDERED: APIXABAN 5 MG TABLET PO SCH (22:00)
== END 2024-04-29 17:30 | DRG 176 ==
LOC: JER 19:19 → JERBED 04-23 04:26 → J4S 04-24 21:46
PROVIDERS: ADMIT Internal Medicine; ATTEND Internal Medicine
DX: I26.99 Other pulmonary embolism without acute cor pulmonale (principal); N17.9 Acute kidney failure, unspecified; I24.89 Other forms of acute ischemic heart disease; N39.0 Urinary tract infection, site not specified; F20.0 Paranoid schizophrenia; F03.90 Unspecified dementia, unspecified severity, without behavioral disturbance, psychotic disturbance, mood disturbance, and anxiety; E11.9 Type 2 diabetes mellitus without complications; K21.9 Gastro-esophageal reflux disease without esophagitis; I10 Essential (primary) hypertension; R50.9 Fever, unspecified; F41.9 Anxiety disorder, unspecified; G20.A1 Parkinson's disease without dyskinesia, without mention of fluctuations; J44.9 Chronic obstructive pulmonary disease, unspecified; E78.5 Hyperlipidemia, unspecified; K56.41 Fecal impaction; K80.20 Calculus of gallbladder without cholecystitis without obstruction; E83.39 Other disorders of phosphorus metabolism; E83.42 Hypomagnesemia; B96.20 Unspecified Escherichia coli [E. coli] as the cause of diseases classified elsewhere; E86.0 Dehydration; D72.829 Elevated white blood cell count, unspecified
CPT/HCPCS: 0241U-QW; 36415; 71045-TC-FY; 71275-TC; 74018-TC-FY; 74177-TC; 80048; 80053; 81003; 82803; 82962; 83036; 83605; 83735; 84100; 84443; 84484; 85025; 85027; 85610; 85730; 86850; 86900; 86901; 87040; 87086; 87186; 87635; 93005; 93010; 93306-TC; 93971; 97161-GP; 99285-25; J0131; Q9967